=== PATIENT | male | born 1965 | race Caucasian/White ===

== ENCOUNTER 2018-11-08 07:35 | Day surgery (SDC) | payer BC ==
[~2018-11-08 07:35] MED LIST: Lactated Ringers 1,000 ML IV SCH
[2018-11-08] MEDS ORDERED: Propofol 200 MG/20 ML SDV IV ONE (07:36)
[2018-11-08] MEDS ORDERED: Lidocaine 2% 100 MG/5 ML Syringe IVPUSH ONE (07:36)
--- NOTE | 2018-11-08 09:55 | PCM.OPNOTE ---
- General Post-Op/Procedure Note Date of Surgery/Procedure: 11/08/18 Operative Procedure(s): c scope with bx Findings: ascending colon polyp Pre Op Diagnosis: screening Post-Op Diagnosis: colon polyp Anesthesia Technique: MAC Primary Surgeon: Phill Fink Anesthesia Provider: Jose Snyder Pathology: ascending colon [id number] Complications: None Condition: Good Free Text/Narrative:: see dictation
--- NOTE | 2018-11-08 12:57 | OR ---
DATE OF OPERATION: 11/08/2018 SURGEON: Phill Fink MD PROCEDURE PERFORMED: Colonoscopy with cold forceps biopsy. PREOPERATIVE DIAGNOSIS: Need for screening C-scope. POSTOPERATIVE DIAGNOSIS: Ascending colon polyp x2. INDICATIONS FOR PROCEDURE: This is a 52-year-old white male referred for his initial screening colonoscopy. He was offered and accepted the same. DESCRIPTION OF OPERATION: After an excellent IV sedation was administered, digital rectal exam was performed. No marked abnormality was noted. Flexible colonoscope was inserted and advanced to the cecum. The prep was excellent. The following findings were noted. Ascending colon, 2 polypoid lesions biopsied with cold biopsy forceps and photos were taken and submitted in 1 container. Transverse colon, unremarkable. Descending colon, unremarkable. Sigmoid and rectum, unremarkable. Colon was deflated, scope was removed. The patient tolerated the procedure well, was taken to recovery in good condition. Results by letter. /[id number] /EVELIN
== END 2018-11-08 10:26 | disposition home or self-care (01) ==
LOC: FB.SDS 07:35
PROVIDERS: ATTEND Surgery
DX: Z12.11 Encounter for screening for malignant neoplasm of colon (principal); D12.2 Benign neoplasm of ascending colon; I10 Essential (primary) hypertension; E78.2 Mixed hyperlipidemia; Z87.891 Personal history of nicotine dependence; Z79.899 Other long term (current) drug therapy
CPT/HCPCS: 88305; J2001; J2704; J7120

== ENCOUNTER 2019-10-03 08:12 | Emergency (ER) | payer BC ==
[2019-10-03] MEDS ORDERED: Ondansetron 4 MG/2 ML SDV IVPUSH ONE (08:25)
[2019-10-03] MEDS ORDERED: Morphine 2 MG/ML Syringe IVPUSH ONE ×2 (08:26→08:42)
[2019-10-03] MEDS ORDERED: Sodium Chloride 0.9% 1,000 ML IV SCH (08:30)
[2019-10-03] MEDS: Sodium Chloride 0.9% 10 ML Syringe FLUSH PRN ×2 (08:49→09:17)
[2019-10-03] MEDS ORDERED: Iopamidol 755 Mg/ML 100 ML Bottle IV ONE (08:49)
[2019-10-03] MEDS ORDERED: HYDROmorphone 2 MG/ML SDV IVPUSH ONE (09:10)
--- NOTE | 2019-10-03 10:52 | EDM.PDOC ---
ED HPI GENERAL MEDICAL PROBLEM - General Chief Complaint: Gastrointestinal Problem Stated Complaint: Abdominal pain RLQ and lower back Pain Score (Numeric/FACES): 4 - Related Data Allergies Allergy/AdvReac Type Severity Reaction Status Date / Time Penicillins Allergy Other Verified 10/03/19 09:20 Home Meds: Home Meds Lisinopril 1 tab PO DAILY 11/07/18 [History] atorvaSTATin Calcium [Atorvastatin Calcium] 1 tab PO BEDTIME 11/07/18 [History] Past Medical History HEENT History: Reports: Other (See Below) Other HEENT History: ALLERGIC RHINITIS Cardiovascular History: Reports: Aneurysm, Heart Murmur, High Cholesterol, Hypertension, Other (See Below) Other Cardiovascular History: mitral valve prolapse, father of heart attack in early fifties. Respiratory History: Reports: None Gastrointestinal History: Reports: None Genitourinary History: Reports: None Musculoskeletal History: Reports: Fracture Other Musculoskeletal History: FX SKULL POST FALL. Neurological History: Reports: Head Trauma Other Neuro History: FALL INVOLVING FX SKULL AFTER FALLING DOWN STEPS 11/2007. STATES BLED OUT OF LEFT EAR. Psychiatric History: Reports: Addiction Endocrine/Metabolic History: Reports: None Dermatologic History: Reports: Other (See Below) Other Dermatologic History: TINEA CRURIS - Infectious Disease History Infectious Disease History: Reports: Chicken Pox - Past Surgical History HEENT Surgical History: Reports: Oral Surgery Other HEENT Surgeries/Procedures: DENTAL IMPLANTS UPPER. Social & Family History - Family History HEENT: Reports: Impaired Vision Cardiac: Reports: [place], Other (See Below) Other Cardiac Family History: father had heart attack in early fifties and . - Tobacco Use Smoking Status *Q: Former Smoker Used Tobacco, but Quit: Yes Month/Year Tobacco Last Used: Tobacco Use Comment: Pt states he used to smoke in college when he would drink. Did not regularly smoke, however. - Caffeine Use Caffeine Use: Reports: Coffee, Soda - Recreational Drug Use Recreational Drug Use: No Course - Vital Signs Last Recorded V/S: Last Vital Signs Temp 36.4 C 10/03/19 09:35 Pulse 71 10/03/19 09:35 Resp 14 10/03/19 09:35 BP 126/94 H 10/03/19 09:35 Pulse Ox 100 10/03/19 09:35 - Orders/Labs/Meds Orders: Active Orders 24 hr Category Date Time Status Abdomen Pelvis w Cont [CT] Stat Exams 10/03/19 08:41 Taken UA W/MICROSCOPIC [URIN] Stat Lab 10/03/19 08:41 Ordered Sodium Chloride 0.9% [Normal Saline] 1,000 ml Med 10/03/19 08:30 Active IV ASDIRECTED Sodium Chloride 0.9% [Saline Flush] Med 10/03/19 08:25 Active 10 ml FLUSH ASDIRECTED PRN Peripheral IV Insertion Adult [OM.PC] Routine Oth 10/03/19 08:25 Ordered Medication Orders Sodium Chloride (Normal Saline) 1,000 mls @ 999 mls/hr IV ASDIRECTED NUNO Last Admin: 10/03/19 08:45 Dose: 999 mls/hr Sodium Chloride (Saline Flush) 10 ml FLUSH ASDIRECTED PRN PRN Reason: Keep Vein Open Last Admin: 10/03/19 09:17 Dose: 10 ml Admin: 10/03/19 08:49 Dose: 10 ml Labs: Laboratory Tests 10/03/19 10/03/19 10/03/19 Range/Units 08:50 08:50 08:50 WBC 12.5 H (4.5-12.0) X10-3/uL RBC 5.16 (4.30-5.75) x10(6)uL Hgb 14.8 (13.5-17.8) g/dL Hct 44.3 (30.0-51.3) % MCV 85.9 (80-96) fL MCH 28.6 (27.7-33.6) pg MCHC 33.3 (32.2-35.4) g/dL RDW 12.9 (11.5-15.5) % Plt Count 224 (125-369) X10(3)uL MPV 7.9 (7.4-10.4) fL Neutrophils % (Manual) 78 (46-82) % Lymphocytes % (Manual) 15 (13-37) % Monocytes % (Manual) 7 (4-12) % Sodium 143 (135-145) mmol/L Potassium 4.3 (3.5-5.3) mmol/L Chloride 109 (100-110) mmol/L Carbon Dioxide 24 (21-32) mmol/L BUN 17 (7-18) mg/dL Creatinine 1.3 (0.70-1.30) mg/dL Est Cr Clr Drug Dosing TNP Estimated GFR (MDRD) 58 L (>60) BUN/Creatinine Ratio 13.1 (9-20) Glucose 154 H (80-116) mg/dL Calcium 8.3 L (8.6-10.2) mg/dL Total Bilirubin 0.5 (0.1-1.3) mg/dL AST 36 H (5-25) IU/L ALT 62 H (12-36) U/L Alkaline Phosphatase 136 H (56-112) IU/L Total Protein 6.6 (6.0-8.0) g/dL Albumin 3.3 L (3.5-5.2) g/dL Globulin 3.3 g/dL Albumin/Globulin Ratio 1.0 Amylase 132 H (25-115) U/L Lipase 406 H (73-393) U/L Meds: Medications Generic Name Dose Route Start Last Admin Trade Name Freq PRN Reason Stop Dose Admin Sodium Chloride 1,000 mls @ 999 mls/hr 10/03/19 08:30 10/03/19 08:45 Normal Saline IV 999 mls/hr ASDIRECTED NUNO Administration Sodium Chloride 10 ml 10/03/19 08:25 10/03/19 09:17 Saline Flush FLUSH 10 ml ASDIRECTED PRN Administration Keep Vein Open Discontinued Medications Generic Name Dose Route Start Last Admin Trade Name Freq PRN Reason Stop Dose Admin Hydromorphone HCl 2 mg 10/03/19 09:10 10/03/19 09:15 Dilaudid IVPUSH 10/03/19 09:11 2 mg ONETIME ONE Administration Iopamidol 100 ml 10/03/19 08:49 10/03/19 09:05 Isovue-370 (76%) IV 10/03/19 08:50 100 ml . DIRECTED ONE Administration Morphine Sulfate 2 mg 10/03/19 08:26 10/03/19 08:31 Morphine IVPUSH 10/03/19 08:27 2 mg ONETIME ONE Administration Morphine Sulfate 2 mg 10/03/19 08:42 10/03/19 08:47 Morphine IVPUSH 10/03/19 08:43 2 mg ONETIME ONE Administration Ondansetron HCl 4 mg 10/03/19 08:25 10/03/19 08:32 Zofran IVPUSH 10/03/19 08:26 4 mg ONETIME ONE Administration Departure - Departure Time of Disposition: 10:50 Disposition: DC/Tfer to Acute Hospital 02 Condition: Good Clinical Impression: Nephrolithiasis - Discharge Information Referrals: Lars Escobar MD [Primary Care Provider] - Sepsis Event Note - Evaluation Sepsis Screening Result: No Definite Risk - Focused Exam Vital Signs: Vital Signs Temp Pulse Resp BP Pulse Ox 10/03/19 09:35 36.4 C 71 14 126/94 H 100 10/03/19 08:13 36.3 C 75 18 134/120 H 100 Date Exam was Performed: 10/03/19 Time Exam was Performed: 10:50 - My Orders Last 24 Hours: My Active Orders 10/03/19 08:25 Sodium Chloride 0.9% [Saline Flush] 10 ml FLUSH ASDIRECTED PRN Peripheral IV Insertion Adult [OM.PC] Routine 10/03/19 08:30 Sodium Chloride 0.9% [Normal Saline] 1,000 ml IV ASDIRECTED 10/03/19 08:41 Abdomen Pelvis w Cont [CT] Stat UA W/MICROSCOPIC [URIN] Stat - Assessment/Plan Last 24 Hours: My Active Orders 10/03/19 08:25 Sodium Chloride 0.9% [Saline Flush] 10 ml FLUSH ASDIRECTED PRN Peripheral IV Insertion Adult [OM.PC] Routine 10/03/19 08:30 Sodium Chloride 0.9% [Normal Saline] 1,000 ml IV ASDIRECTED 10/03/19 08:41 Abdomen Pelvis w Cont [CT] Stat UA W/MICROSCOPIC [URIN] Stat
--- NOTE | 2019-10-03 10:57 | EDM.PDOC ---
ED HPI GENERAL MEDICAL PROBLEM - General Chief Complaint: Gastrointestinal Problem Stated Complaint: Abdominal pain Time Seen by Provider: 10/03/19 08:20 Source of Information: Reports: Patient History Limitations: Reports: No Limitations - History of Present Illness INITIAL COMMENTS - FREE TEXT/NARRATIVE: Patient presented to the ED because of right lower back. sided abdominal pain which started at 0630 with associated frequency and urgency. He also c/o nausea but no vomiting,no fever or chills. The pain is sharp 10/10 and radiates to the lower back. RLQ and lower back Pain Score (Numeric/FACES): 4 - Related Data Allergies Allergy/AdvReac Type Severity Reaction Status Date / Time Penicillins Allergy Other Verified 10/03/19 09:20 Home Meds: Home Meds Lisinopril 1 tab PO DAILY 11/07/18 [History] atorvaSTATin Calcium [Atorvastatin Calcium] 1 tab PO BEDTIME 11/07/18 [History] Past Medical History HEENT History: Reports: Other (See Below) Other HEENT History: ALLERGIC RHINITIS Cardiovascular History: Reports: Aneurysm, Heart Murmur, High Cholesterol, Hypertension, Other (See Below) Other Cardiovascular History: mitral valve prolapse, father of heart attack in early fifties. Respiratory History: Reports: None Gastrointestinal History: Reports: None Genitourinary History: Reports: None Musculoskeletal History: Reports: Fracture Other Musculoskeletal History: FX SKULL POST FALL. Neurological History: Reports: Head Trauma Other Neuro History: FALL INVOLVING FX SKULL AFTER FALLING DOWN STEPS 11/2007. STATES BLED OUT OF LEFT EAR. Psychiatric History: Reports: Addiction Endocrine/Metabolic History: Reports: None Dermatologic History: Reports: Other (See Below) Other Dermatologic History: TINEA CRURIS - Infectious Disease History Infectious Disease History: Reports: Chicken Pox - Past Surgical History HEENT Surgical History: Reports: Oral Surgery Other HEENT Surgeries/Procedures: DENTAL IMPLANTS UPPER. Social & Family History - Family History HEENT: Reports: Impaired Vision Cardiac: Reports: [place], Other (See Below) Other Cardiac Family History: father had heart attack in early fifties and . - Tobacco Use Smoking Status *Q: Former Smoker Used Tobacco, but Quit: Yes Month/Year Tobacco Last Used: Tobacco Use Comment: Pt states he used to smoke in college when he would drink. Did not regularly smoke, however. - Caffeine Use Caffeine Use: Reports: Coffee, Soda - Recreational Drug Use Recreational Drug Use: No ED ROS GENERAL - Review of Systems Review Of Systems: See Below Constitutional: Reports: No Symptoms HEENT: Reports: No Symptoms Respiratory: Reports: No Symptoms Cardiovascular: Reports: No Symptoms Endocrine: Reports: No Symptoms GI/Abdominal: Reports: Abdominal Pain, Nausea. Denies: Vomiting : Reports: No Symptoms Musculoskeletal: Reports: No Symptoms Skin: Reports: No Symptoms ED EXAM, RENAL/ - Physical Exam Exam: See Below Exam Limited By: No Limitations General Appearance: Alert, WD/WN, No Apparent Distress Ears: Normal External Exam, Normal Canal Nose: Normal Inspection, Normal Mucosa Throat/Mouth: Normal Inspection, Normal Lips Head: Atraumatic, Normocephalic Neck: Normal Inspection, Supple, Non-Tender Respiratory/Chest: No Respiratory Distress, Lungs Clear, Normal Breath Sounds, No Accessory Muscle Use, Chest Non-Tender Cardiovascular: Normal Peripheral Pulses, Regular Rate, Rhythm, No Edema, No Gallop, No JVD, No Murmur, No Rub GI/Abdominal: Normal Bowel Sounds, Soft, No Organomegaly, No Distention, Other (Male) Exam: Other (R CVAT) Back Exam: Normal Inspection Extremities: Normal Inspection Course - Vital Signs Text/Narrative:: labs and CT reviewed with patient and verbalized understanding Morphine 2 mg IV x2 doses dilaudid 2 mg IV x1 dose zofran 4 mg IV x1 toradol 30 mg IV x1 dose case discussed with Sr Cuenca who agreed with the plan to transfer him because of the obstructing stone and sever hydronephrosis on the right Last Recorded V/S: Last Vital Signs Temp 36.4 C 10/03/19 09:35 Pulse 71 10/03/19 09:35 Resp 14 10/03/19 09:35 BP 126/94 H 10/03/19 09:35 Pulse Ox 100 10/03/19 09:35 - Orders/Labs/Meds Orders: Active Orders 24 hr Category Date Time Status Abdomen Pelvis w Cont [CT] Stat Exams 10/03/19 08:41 Taken UA W/MICROSCOPIC [URIN] Stat Lab 10/03/19 08:41 Ordered Sodium Chloride 0.9% [Normal Saline] 1,000 ml Med 10/03/19 08:30 Active IV ASDIRECTED Sodium Chloride 0.9% [Saline Flush] Med 10/03/19 08:25 Active 10 ml FLUSH ASDIRECTED PRN Peripheral IV Insertion Adult [OM.PC] Routine Oth 10/03/19 08:25 Ordered Medication Orders Sodium Chloride (Normal Saline) 1,000 mls @ 999 mls/hr IV ASDIRECTED NUNO Last Admin: 10/03/19 08:45 Dose: 999 mls/hr Sodium Chloride (Saline Flush) 10 ml FLUSH ASDIRECTED PRN PRN Reason: Keep Vein Open Last Admin: 10/03/19 09:17 Dose: 10 ml Admin: 10/03/19 08:49 Dose: 10 ml Labs: Laboratory Tests 10/03/19 10/03/19 10/03/19 Range/Units 08:50 08:50 08:50 WBC 12.5 H (4.5-12.0) X10-3/uL RBC 5.16 (4.30-5.75) x10(6)uL Hgb 14.8 (13.5-17.8) g/dL Hct 44.3 (30.0-51.3) % MCV 85.9 (80-96) fL MCH 28.6 (27.7-33.6) pg MCHC 33.3 (32.2-35.4) g/dL RDW 12.9 (11.5-15.5) % Plt Count 224 (125-369) X10(3)uL MPV 7.9 (7.4-10.4) fL Neutrophils % (Manual) 78 (46-82) % Lymphocytes % (Manual) 15 (13-37) % Monocytes % (Manual) 7 (4-12) % Sodium 143 (135-145) mmol/L Potassium 4.3 (3.5-5.3) mmol/L Chloride 109 (100-110) mmol/L Carbon Dioxide 24 (21-32) mmol/L BUN 17 (7-18) mg/dL Creatinine 1.3 (0.70-1.30) mg/dL Est Cr Clr Drug Dosing TNP Estimated GFR (MDRD) 58 L (>60) BUN/Creatinine Ratio 13.1 (9-20) Glucose 154 H (80-116) mg/dL Calcium 8.3 L (8.6-10.2) mg/dL Total Bilirubin 0.5 (0.1-1.3) mg/dL AST 36 H (5-25) IU/L ALT 62 H (12-36) U/L Alkaline Phosphatase 136 H (56-112) IU/L Total Protein 6.6 (6.0-8.0) g/dL Albumin 3.3 L (3.5-5.2) g/dL Globulin 3.3 g/dL Albumin/Globulin Ratio 1.0 Amylase 132 H (25-115) U/L Lipase 406 H (73-393) U/L Meds: Medications Generic Name Dose Route Start Last Admin Trade Name Freq PRN Reason Stop Dose Admin Sodium Chloride 1,000 mls @ 999 mls/hr 10/03/19 08:30 10/03/19 08:45 Normal Saline IV 999 mls/hr ASDIRECTED NUNO Administration Sodium Chloride 10 ml 10/03/19 08:25 10/03/19 09:17 Saline Flush FLUSH 10 ml ASDIRECTED PRN Administration Keep Vein Open Discontinued Medications Generic Name Dose Route Start Last Admin Trade Name Freq PRN Reason Stop Dose Admin Hydromorphone HCl 2 mg 10/03/19 09:10 10/03/19 09:15 Dilaudid IVPUSH 10/03/19 09:11 2 mg ONETIME ONE Administration Iopamidol 100 ml 10/03/19 08:49 10/03/19 09:05 Isovue-370 (76%) IV 10/03/19 08:50 100 ml . DIRECTED ONE Administration Morphine Sulfate 2 mg 10/03/19 08:26 10/03/19 08:31 Morphine IVPUSH 10/03/19 08:27 2 mg ONETIME ONE Administration Morphine Sulfate 2 mg 10/03/19 08:42 10/03/19 08:47 Morphine IVPUSH 10/03/19 08:43 2 mg ONETIME ONE Administration Ondansetron HCl 4 mg 10/03/19 08:25 10/03/19 08:32 Zofran IVPUSH 10/03/19 08:26 4 mg ONETIME ONE Administration Departure - Departure Time of Disposition: 11:00 Disposition: DC/Tfer to Acute Hospital 02 Condition: Good Clinical Impression: Nephrolithiasis - Discharge Information Referrals: Lars Escobar MD [Primary Care Provider] - Forms: ED Department Discharge Sepsis Event Note - Evaluation Sepsis Screening Result: No Definite Risk - Focused Exam Vital Signs: Vital Signs Temp Pulse Resp BP Pulse Ox 10/03/19 09:35 36.4 C 71 14 126/94 H 100 10/03/19 08:13 36.3 C 75 18 134/120 H 100 Date Exam was Performed: 10/03/19 Time Exam was Performed: 10:52 - My Orders Last 24 Hours: My Active Orders 10/03/19 08:25 Sodium Chloride 0.9% [Saline Flush] 10 ml FLUSH ASDIRECTED PRN Peripheral IV Insertion Adult [OM.PC] Routine 10/03/19 08:30 Sodium Chloride 0.9% [Normal Saline] 1,000 ml IV ASDIRECTED 10/03/19 08:41 Abdomen Pelvis w Cont [CT] Stat UA W/MICROSCOPIC [URIN] Stat - Assessment/Plan Last 24 Hours: My Active Orders 10/03/19 08:25 Sodium Chloride 0.9% [Saline Flush] 10 ml FLUSH ASDIRECTED PRN Peripheral IV Insertion Adult [OM.PC] Routine 10/03/19 08:30 Sodium Chloride 0.9% [Normal Saline] 1,000 ml IV ASDIRECTED 10/03/19 08:41 Abdomen Pelvis w Cont [CT] Stat UA W/MICROSCOPIC [URIN] Stat
[2019-10-03] MEDS ORDERED: Ketorolac 30 MG/ML SDV IVPUSH ONE (11:00)
== END 2019-10-03 11:23 ==
LOC: FB.ED 08:12
DX: N13.2 Hydronephrosis with renal and ureteral calculous obstruction (principal)
CPT/HCPCS: 36415; 74177; 80053; 82150; 83690; 85025; J1170; J1885; J2270; J2405; J7030; Q9967

== ENCOUNTER 2025-01-15 06:19 | Day surgery (SDC) | payer BC ==
[~2025-01-15 06:19] MED LIST changes: -Lactated Ringers 1,000 ML IV SCH; +Sodium Chloride 0.9% 10 ML Syringe FLUSH PRN
[2025-01-15] MEDS ORDERED: Lidocaine 1% PF 2 ML SDV IV ONE (06:20)
[2025-01-15] MEDS ORDERED: Propofol 200 MG/20 ML SDV IV ONE (06:20)
[2025-01-15] MEDS ORDERED: Midazolam 1 MG/ML 2 ML SDV IV ONE (06:20)
[2025-01-15] MEDS ORDERED: Glycopyrrolate 0.2 MG/ML 5 ML MDV IV ONE (06:20)
[2025-01-15] MEDS ORDERED: Ketamine 500 mg/10 ML MDV IV ONE (06:20)
[2025-01-15 06:36] VITALS: BP 131/83; PULSE 60
[2025-01-15] MEDS: Lactated Ringers 1,000 ML IV SCH (06:52)
[2025-01-15] MEDS: Simethicone Drops 40 MG/0.6 ML 30 ML Bottle ONE (07:39)
== END 2025-01-15 09:51 | disposition home or self-care (01) ==
LOC: FB.SDS 06:19
PROVIDERS: ATTEND Surgery
DX: Z12.11 Encounter for screening for malignant neoplasm of colon (principal); D12.0 Benign neoplasm of cecum; D12.2 Benign neoplasm of ascending colon; D12.6 Benign neoplasm of colon, unspecified; Z86.0101 Personal history of adenomatous and serrated colon polyps; K40.90 Unilateral inguinal hernia, without obstruction or gangrene, not specified as recurrent; I10 Essential (primary) hypertension; E78.5 Hyperlipidemia, unspecified; Z79.82 Long term (current) use of aspirin; Z79.899 Other long term (current) drug therapy
CPT/HCPCS: 00811; 88305; A9270-GY; J1596; J2003; J2250; J2704; J3490; J7120

== ENCOUNTER 2025-01-27 12:15 | Emergency (ER) | payer BC ==
[2025-01-27] MEDS: Aspirin 81 MG Tab.Chew PO ONE (12:20)
[2025-01-27] MEDS: Nitroglycerin 0.4 MG Tab.SL SL ONE (12:23)
[2025-01-27] MEDS ORDERED: Sodium Chloride 0.9% 10 ML Syringe FLUSH PRN (12:24)
[2025-01-27] MEDS: Nitroglycerin 0.4 MG Tab.SL SL PRN (12:29)
[2025-01-27 12:32] LABS: BASOPHILS ABSOLUTE AUTO 0.1 x10-3/uL (0.0-0.3); BASOPHILS PERCENT AUTO 0.6 % (0.3-3.8); EOSINOPHILS ABSOLUTE AUTO 0.2 x10-3/uL (0.0-0.6); EOSINOPHILS PERCENT AUTO 1.6 % (0.1-6.8); HEMATOCRIT 39.8 % (38.3-50.1); LYMPHOCYTES ABSOLUTE AUTO 2.8 x10-3/uL (0.5-4.5); LYMPHOCYTES PERCENT AUTO 28.2 % (15.8-45.3); MEAN CORPUSCULAR HGB CONC 32.6 g/dL (28.7-35.3); MEAN CORPUSCULAR VOLUME 76.5 fL (80.8-98.7); MEAN PLATELET VOLUME 8.1 fL (6.7-11.0); MONOCYTES ABSOLUTE AUTO 1.1 x10-3/uL (0.0-1.2); NEUTROPHILS ABSOLUTE AUTO 5.9 x10-3/uL (1.7-6.9); NEUTROPHILS PERCENT AUTO 58.6 % (40.3-71.8); PLATELET COUNT,PLT 197 x10(3)uL (117-477); RED CELL DISTRIBUTION WIDTH 16.1 % (12.4-15.0)
[2025-01-27 12:36] LABS: BLOOD UREA NITROGEN,BUN 21 mg/dL (7-18); BUN/CREATININE RATIO 16.2 (9-20); CALCIUM 7.9 mg/dL (8.6-10.2); CARBON DIOXIDE,CO2 26 mmol/L (21-32); CHLORIDE,CL 108 mmol/L (100-110); CREATININE 1.3 mg/dL (0.70-1.30); EST CRCL DRUG DOSING (CG) 63.95 mL/min; ESTIMATED GFR 64 mL/min (>60); GLUCOSE RANDOM 112 mg/dL (80-116); POTASSIUM,K 3.6 mmol/L (3.5-5.3); SODIUM,NA 142 mmol/L (135-145)
[2025-01-27 12:42] LABS: A/G RATIO 0.9; ALANINE AMINOTRANSFERASE,ALT 56 U/L (12-36); ALBUMIN 3.4 g/dL (3.5-5.2); ALKALINE PHOSPHATASE 114 IU/L (56-112); ASPARTATE AMNIOTRANSFERASE,AST 38 IU/L (5-25); BILIRUBIN TOTAL 0.5 mg/dL (0.1-1.3); MAGNESIUM 1.8 mg/dL (1.8-2.5)
[2025-01-27] MEDS: LORazepam 2 MG/ML SDV IVPUSH ONE (12:46)
[2025-01-27 12:49] LABS: TROPONIN I 8.2 pg/mL (4.0-60.3)
[2025-01-27] MEDS: Heparin Sodium 5,000 Units/ML Vial IVPUSH ONE (13:22)
[2025-01-27] MEDS: Heparin Sodium/0.45% NaCl 500 ML IV SCH (13:26)
[2025-01-27] MEDS: Clopidogrel 75 MG Tab PO ONE (13:43)
[2025-01-27] MEDS: Tenecteplase 50 MG Kit IVPUSH STA (13:44)
[2025-01-27] MEDS ORDERED: Naloxone 0.4 MG/ML SDV IVPUSH PRN (13:48)
[2025-01-27] MEDS: Morphine 4 MG/ML VIAL IVPUSH ONE (13:52)
== END 2025-01-27 14:30 ==
LOC: FB.ED 12:15
DX: I21.3 ST elevation (STEMI) myocardial infarction of unspecified site (principal); I10 Essential (primary) hypertension; E78.00 Pure hypercholesterolemia, unspecified; Z88.0 Allergy status to penicillin; Z79.82 Long term (current) use of aspirin; Z79.899 Other long term (current) drug therapy
CPT/HCPCS: 36415; 71045; 80053; 83735; 83880; 84484; 85025; 85379; 85730; 93005; 96365; 96375; 99285-25; A9270-GY; J1644; J2060; J2270; J3101

== ENCOUNTER 2025-07-04 04:20 | Emergency (ER) | payer BC ==
[2025-07-04] MEDS ORDERED: Sodium Chloride 0.9% 10 ML Syringe FLUSH PRN (04:35)
[2025-07-04] MEDS ORDERED: Naloxone 0.4 MG/ML SDV IVPUSH PRN (04:38)
[2025-07-04] MEDS: Ketorolac 30 MG/ML SDV IVPUSH ONE (04:47)
[2025-07-04] MEDS: Ondansetron 4 MG/2 ML SDV IVPUSH ONE (04:47)
[2025-07-04 04:49] LABS: BASOPHILS ABSOLUTE AUTO 0.0 x10-3/uL (0.0-0.3); BASOPHILS PERCENT AUTO 0.4 % (0.3-3.8); EOSINOPHILS ABSOLUTE AUTO 0.2 x10-3/uL (0.0-0.6); EOSINOPHILS PERCENT AUTO 2.4 % (0.1-6.8); LYMPHOCYTES ABSOLUTE AUTO 1.7 x10-3/uL (0.5-4.5); LYMPHOCYTES PERCENT AUTO 17.6 % (15.8-45.3); MEAN PLATELET VOLUME 8.7 fL (6.7-11.0); MONOCYTES ABSOLUTE AUTO 1.5 x10-3/uL (0.0-1.2); MONOCYTES PERCENT AUTO 15.3 % (5.5-15.2); NEUTROPHILS ABSOLUTE AUTO 6.3 x10-3/uL (1.7-6.9); NEUTROPHILS PERCENT AUTO 64.3 % (40.3-71.8); PLATELET COUNT,PLT 153 x10(3)uL (117-477); RED BLOOD CELL COUNT 4.78 x10(6)uL (3.90-5.90); RED CELL DISTRIBUTION WIDTH 15.7 % (12.4-15.0); WHITE BLOOD CELL COUNT,WBC 9.8 x10-3/uL (3.2-10.1)
[2025-07-04 04:51] LABS: BLOOD UREA NITROGEN,BUN 29 mg/dL (7-18); CARBON DIOXIDE,CO2 27 mmol/L (21-32); CHLORIDE,CL 110 mmol/L (100-110); CREATININE 1.7 mg/dL (0.70-1.30); EST CRCL DRUG DOSING (CG) 47.36 mL/min; ESTIMATED GFR 46 mL/min (>60); GLUCOSE RANDOM 104 mg/dL (80-116); POTASSIUM,K 4.3 mmol/L (3.5-5.3); SODIUM,NA 141 mmol/L (135-145)
[2025-07-04 05:56] LABS: GLUCOSE,URINE NORMAL (NORMAL); OCCULT BLOOD,URINE MODERATE (NEGATIVE)
[2025-07-04 06:00] LABS: APPEARANCE,URINE CLEAR (CLEAR)
[2025-07-04 06:01] LABS: SQUAMOUS EPITHELIAL CELLS,UR OCCASIONAL (NS,R,O)
== END 2025-07-04 06:31 | disposition home or self-care (01) ==
LOC: FB.ED 04:20
DX: N13.30 Unspecified hydronephrosis (principal); I10 Essential (primary) hypertension; E78.00 Pure hypercholesterolemia, unspecified; Z88.0 Allergy status to penicillin; Z79.82 Long term (current) use of aspirin; Z79.899 Other long term (current) drug therapy
CPT/HCPCS: 74176; 80048; 81001; 85025; 93005; 96361; 96374; 96375; 99284; J1885; J2270; J2405; J7030